=== PATIENT | female | born 1950 | race Hispanic/Latino ===

== ENCOUNTER 2016-08-09 08:41 | Outpatient (CLI) | payer OTHER ==
[2016-08-09] MEDS ORDERED: DULCOLAX PR ONE ×2 (09:48→10:47)
--- NOTE | 2016-08-09 11:56 | Fluoroscopy Report ---
Defagram: History: Constipation, multiple prior pelvic organ surgeries. The patient was given oral contrast poor small bowel opacification. An opaque tampon is present and rectal paste introduced into the rectosigmoid colon. There is a normal anal rectal angle with slight increased ankle with rectal squeezing. The patient was placed on defecation seat and under fluoroscopic observation the patient began evacuation. After a slight delay the patient began evacuating during which a rectocele formed and persisted at the end of evacuation. Only a minimal amount of contrast otherwise remained in the rectosigmoid colon. The patient felt that she had completed evacuation. Impressions: Rectocele.
== END 2016-08-09 08:42 | disposition home or self-care (01) ==
LOC: FLUORO 08:41
PROVIDERS: ATTEND Internal Medicine Gastroenterology
DX: N81.6 Rectocele (principal); R15.0 Incomplete defecation
CPT/HCPCS: 74270; Q9963